=== PATIENT | female | born 1990 ===

== ENCOUNTER 2020-11-26 18:14 | Emergency (ER) | payer SELFPAY ==
[2020-11-26 18:31] VITALS: BP 124/87
--- NOTE | 2020-11-26 18:32 | Emergency Department Report ---
Chief Complaint: Urogenital-Female Stated Complaint: VAGINAL IRRITATION Time Seen by Provider: 11/26/20 18:32 - HPI History of Present Illness: vag irritation p washed her clothes in tide no vag bleed no vag dc no abd pain no back pain no fever or chills - ROS Review of Systems: vag irritation - Exam Vital Signs: Vital Signs 11/26/20 18:30 Temperature 98.7 F Pulse Rate 91 H Respiratory 18 Rate Blood Pressure 124/87 [Right] O2 Sat by Pulse 98 Oximetry Physical Exam: abd snt no cva tenderness non ill ambulatory and in nad MSE screening note: Focused history and physical exam performed. Due to findings the following was ordered: no life threat has obgyn appnt on Monday she will follow up with them. Patient discussed with doctor:: [facility] ED Disposition for MSE Condition: Stable
== END 2020-11-26 18:35 | disposition left against medical advice (07) ==
LOC: ED 18:14
DX: N89.8 Other specified noninflammatory disorders of vagina (principal)
CPT/HCPCS: 99281